=== PATIENT | female | born 2000 | race Caucasian/White ===

== ENCOUNTER 2022-02-04 13:40 | Outpatient (CLI) | payer BC, MEDICAID, SELFPAY ==
[2022-02-04] VITALS (7 sets, daily range): BP systolic 104–116; BP diastolic 56–62; PULSE 62–87; RESP 16; TEMP 36.6; BMI 21.2
[2022-02-04] MEDS: lactated ringers 1,000 ML 999 ML IV (14:32)
[2022-02-04] MEDS: betamethasone susp 6 mg/mL 5 mL 12 MG IM (14:33)
[2022-02-04] MEDS: NIFEdipine 10 mg Capsule 30 MG PO (14:33)
[2022-02-04 15:53] LABS: Amphetamines Screen Urine Negative (Negative); Barbiturates Screen Urine Negative (Negative); Benzodiazepines Screen Urine Negative (Negative); Cocaine Screen Urine Negative (Negative); Opiate Screen Urine Negative (Negative); PCP Screen Urine Negative (Negative); THC Screen Urine Positive (Negative)
[2022-02-04 16:10] LABS: Alcohol Level < 10 mg/dL (0-10)
== END 2022-02-04 16:50 | disposition home or self-care (01) ==
LOC: OPOB 13:41 → OBGYN 14:03
PROVIDERS: Visit Provider Obstetrics & Gynecology
DX: O26.899 Other specified pregnancy related conditions, unspecified trimester (principal); Z3A.00 Weeks of gestation of pregnancy not specified; R10.9 Unspecified abdominal pain
CPT/HCPCS: 36415; 59025; 80306; 80307; 96372; 99211; J0702

== ENCOUNTER → 2022-02-07 14:39 | Outpatient (BNVA) | payer BC, MEDICAID, SELFPAY | PROVIDERS: Visit Provider Obstetrics & Gynecology | DX: Z34.80 Encounter for supervision of other normal pregnancy, unspecified trimester (principal) | CPT/HCPCS: 81000; 87081 ==

== ENCOUNTER → 2022-02-15 08:57 | Outpatient (BNVA) | payer BC, MEDICAID, SELFPAY | PROVIDERS: Visit Provider Obstetrics & Gynecology | DX: Z34.80 Encounter for supervision of other normal pregnancy, unspecified trimester (principal) | CPT/HCPCS: 81000; 87086 ==

== ENCOUNTER 2022-02-22 03:03 | Inpatient (IN) | payer BC, MEDICAID, SELFPAY ==
[2022-02-22] VITALS (144 sets, daily range): BP systolic 91–145; BP diastolic 53–96; PULSE 60–112; RESP 16; TEMP 36.1; O2SAT 90–100; BMI 23.1
[2022-02-22 03:02] LABS: Amphetamines Screen Urine Negative (Negative); Barbiturates Screen Urine Negative (Negative); Benzodiazepines Screen Urine Negative (Negative); Cocaine Screen Urine Negative (Negative); Opiate Screen Urine Negative (Negative); PCP Screen Urine Negative (Negative); THC Screen Urine Positive (Negative)
[2022-02-22] MEDS: lactated ringers 1,000 ML 999 ML IV (03:15)
[2022-02-22] MEDS: fentaNYL 50 mcg/mL INJ 2mL IVP (03:18)
[2022-02-22 03:33] LABS: Basophils # 0.1 10^3/uL (0.0-0.1); Basophils % 0.5 %; Eosinophils # 0.1 10^3/uL (0.0-0.8); Eosinophils % 0.8 %; Hematocrit 28.1 % (37.0-47.0); Hemoglobin 9.9 g/dL (11.5-15.3); Mean Corpuscular HGB Conc 35.2 g/dL (30.0-36.0); Mean Corpuscular Hemoglobin 30.7 pg (28.0-34.0); Mean Corpuscular Volume 87.3 fl (81-99); Mean Platelet Volume 9.9 fL (7.4-10.4); Monocytes # 0.8 10^3/uL (0.2-0.9); Monocytes % 5.5 %; Neutrophils # 8.77 10^3/uL (1.8-7.7); Neutrophils % 63.5 %; Nucleated Red Blood Cells % 0 %; Platelet Count 198 10^3/cmm (130-400); Red Blood Count 3.22 10^6/uL (4.1-5.3); Red Cell Distribution Width 13.5 % (12.1-15.1); White Blood Count 13.8 10^3/uL (4.0-10.0)
[2022-02-22 03:49] LABS: Slide Review Slide Review Perform
--- NOTE | 2022-02-22 04:10 | ANES.PREANE2 ---
Documented by User: Shannan Alejandre CRNA 02/22/22 04:33 Pre-Anesthetic Assessment Height/Weight: Height 1.7 m Weight 67.132 kg Pulse Resp BP Pulse Ox 69 16 121/67 100 02/22/22 04:29 02/22/22 03:18 02/22/22 04:29 02/22/22 04:24 Preop Diagnosis: IUP epidural Familial anesthetic complications: none Was Beta Jayson taken within 24 hours: N/A Was Clonidine taken within 24 hours: N/A Last intake: 44 Social Tobacco (vapes) and No alcohol Exam alert and oriented x 3 Airway Submandibular: within normal limits Cervical ROM: within normal limits Mallampati: Class II Dentition: full History/ROS No significant history except as noted GI Gastroesophageal Reflux Disease Anesthetic Plan ASA status: 2 Anesthesia: Anesthesia Evaluation and Regional (specify below) (epidural) Risk of > 500 ml blood loss (7ml/kg in children): No Medications/Allergies Home Medications Medication Instructions Recorded Confirmed Last Taken Type 1 tab PO DAILY 02/04/22 02/22/22 02/21/22 History acetaminophen 325 mg tablet 325 mg PO QID PRN 02/04/22 02/22/22 Unknown History (Tylenol) metronidazole 500 mg tablet 500 mg PO BID #14 tab 02/17/22 02/22/22 Unknown Rx Allergies Allergy/AdvReac Type Severity Reaction Status Date / Time No Known Allergies Allergy Verified 02/22/22 02:40 Current Medications Generic Name Dose Route Start Last Admin Trade Name Freq PRN Reason Stop Dose Admin Fentanyl 25 - 100 mcg 02/22/22 02:58 02/22/22 03:18 Fentanyl 50 Mcg/Ml Inj 2ml IVP 25 mcg Q1H PRN Administration SEVERE PAIN Lactated Ringer's 1,000 mls @ 999 mls/hr 02/22/22 03:00 02/22/22 03:15 Lactated Ringers IV 999 mls/hr .Q1H1M PRN Administration See label comments PFSH Anesthesia Medical History No pertinent past medical history neghx: htn, dm, thyroid, dvt/pe PCP: none Surgical History History of 2019 History of shoulder surgery 2016 Family History Denies family history of Colon cancer Ovarian cancer Diabetes Heart disease Hypercholesteremia Breast cancer Hypertension Uterine cancer Thyroid disease Stroke Female Reproductive History : 2 Data Anesthesia : 02/22/22 03:09 Short CBC 02/22/22 Range/Units 03:09 WBC 13.8 H (4.0-10.0) 10^3/uL Hgb 9.9 L (11.5-15.3) g/dL Hct 28.1 L (37.0-47.0) % MCV 87.3 (81-99) fl Plt Count 198 (130-400) 10^3/cmm Neut % (Auto) 63.5 % Neut # (Auto) 8.77 H (1.8-7.7) 10^3/uL Cardiac Studies: No Data to Display
[2022-02-22] MEDS: dextrose 5%-lactated ringers 1,000 ML 125 ML IV ×2 (04:16→16:42)
--- NOTE | 2022-02-22 04:30 | P.ANES_ITS ---
Documented by User: Shannan Alejandre CRNA 02/22/22 04:31 Anesthesia Procedures Procedure/Date: 02/22/22 epidural Epidural: Time Out Performed: Yes Consents Signed: Procedure Consent Con sent: from patient, risks and benefits reviewed and patient agrees to proceed Lumbar Level: L3-L4 Epidural position: sitting Epidural procedure: sterile prep of area, 1% lidocaine to numb the area, 18 g needle, negative for paresthesia passed, test dose given, 1.5% xylocaine 1:200k epi, placed PCEA, no systemic response, sterile dressing applied, L.U.D. no apparent complications and 0.2% Ropiavacaine @ mls/hr (13) Additional Comments: MARCELLE at 5, taped at 12 at skin. neg blood return, neg CSF return Documented by User: Rigoberto Davis DO 02/22/22 10:19 Anesthesia Procedures Procedure/Date: 02/22/22
[2022-02-22] MEDS: lactated ringers 1,000 ML 125 ML IV (09:47)
[2022-02-22] MEDS: oxytocin 30 UNIT/500 ML BAG IV (10:14)
[2022-02-22] MEDS: ondansetron 2 mg/ML SDV 2 mL 4 MG IVP (12:02)
--- NOTE | 2022-02-22 12:32 | PC.NURSE ---
This patient stated she was having some lower back pain near her epidural, this nurse stated I could have anesthesia come to the unit to assess her epidural, this patient stated no it was not bothering her that bad.
--- NOTE | 2022-02-22 19:42 | W.PM.OPSUD ---
Surgery/Procedure H&P Update DATE OF PROCEDURE: February 22, 2022 DATE H&P PERFORMED: 02/15/22 H&P UPDATE INFORMATION: I have reviewed H&P completed within last 30 days, I have examined patient prior to procedure and Changes to prior documentation as noted here CHANGES TO PREVIOUS DOCUMENTATION: The patient presented to labor and delivery at 38 weeks, 4 days with spontaneous labor. Cervix was found to be 4/80/-3. She was jean regularly. Overall very reassuring status. PREOP DIAGNOSIS: IUP Related Problem List Diagnoses (1) GBS (group B Streptococcus carrier), +RV culture, currently : (2) History of labor: (3) History of delivery: (4) Normal :
--- NOTE | 2022-02-22 19:44 | P.PCNOB_ITS ---
Delivery Note: Date of delivery: February 22, 2022 Pre-delivery diagnoses: iup@ 38w4d, active labor, previous , GBS positive Post-delivery diagnoses: same- vaginal delivery Procedure: Delivering Physician: Kevin Estimated blood loss (mL): 25 Findings: term female in the REYMUNDO presentation Pre-Delivery Course: The patient was admitted for labor at term. She desired TOLAC. She was given Ampicillin for GBS prophylaxis. She didn't make much change and pitocin was started. Maximum dose was 5 mU. She had SROM and then complete cervical dilation. She began pushing Delivery: The patient had complete cervical dilation and began to push. The head delivered in the REYMUNDO position over an intact perineum under epidural anesthesia. The nose and mouth were bulb suctioned. The shoulders and body delivered atraumatically. The baby was placed onto the mother's abdomen. The cord was clamped and cut. Cord blood was obtained. The placenta delivered spontaneously. It was inspected and found to be intact. Inspection of the perineum revealed a small first-degree vaginal laceration it was repaired with 0 Vicryl in interrupted sutures. Estimated blood loss 25 mL. Apgars on baby were 7 at 1 minute and 9 at 5 minutes. Weight of baby is 7 pounds 1 ounce. Mother and baby were stable post delivery. History History History 2 Term 0 Miscarriages/Ectopic 0 1 Living Children 1 Coding Level of Care Code Acute Underwear Trimmer for Chg Sammi
[2022-02-22] MEDS: ibuprofen 800 mg tablet PO (22:17)
[2022-02-22] MEDS: HYDROcodone-acetaminophen 5-325 mg Tablet PO (22:17)
[2022-02-23 03:59] VITALS: BP 122/81; PULSE 79; TEMP 36.7; O2SAT 96
[2022-02-23] MEDS: HYDROcodone-acetaminophen 5-325 mg Tablet PO (04:08)
--- NOTE | 2022-02-23 07:15 | ANE.PACU2 ---
Inpatient post-anesthesia follow up: Airway intact: Yes Vital signs: Temperature 98.1 F Pulse Rate 79 Respiratory Rate 16 Blood Pressure 122/81 Pulse Oximetry 96 Oxygen Delivery Me thod Room Air Oxygen Flow Rate Fraction of Inspir ed Oxygen Hydration adequate: Yes Nausea and vomiting: No Pain level: 1 Mental status: Baseline
[2022-02-23] MEDS: prenatal vitamin Capsule 1 CAP PO (08:31)
[2022-02-23] MEDS: ibuprofen 800 mg tablet PO ×3 (08:31→21:14)
[2022-02-23] MEDS: docusate sodium 100 mg Capsule PO (08:31)
[2022-02-23 09:02] VITALS: BP 110/72; PULSE 72; RESP 17; TEMP 36.6; O2SAT 98
[2022-02-23 16:32] VITALS: BP 108/67; PULSE 74; RESP 17; TEMP 36.6; O2SAT 100
--- NOTE | 2022-02-23 16:58 | PM.PN ---
Subjective Subjective: The patient has no concerns today Vitals/I&O/Wt Last Vital Signs Temp 97.9 F 02/23/22 16:32 Pulse 74 02/23/22 16:32 Resp 17 02/23/22 16:32 BP 108/67 02/23/22 16:32 Pulse Ox 100 02/23/22 16:32 02/23/22 02/23/22 02/23/22 06:59 14:59 22:59 Output Total 200 / 800 Balance -200 / 400 Weight last 48 hrs Weight 148 lb Physical Exam Const: COMMON NORMALS: no acute distress, average body habitus, patient oriented x3, no limitations, healthy appearing, alert and well nourished GENERAL APPEARANCE: cooperative, comfortable, well kempt and well developed ORIENTATION/CONSCIOUSNESS: Yes awake, Yes oriented to person, Yes oriented to place and Yes oriented to time Resp: COMMON NORMALS: normal respiratory effort EFFORT & INSPECTION: Yes able to speak in complete sentences GI: COMMON NORMALS: Soft to palpation and non-tender PALPATION: Yes Soft to palpation Extremity: COMMON NORMALS: no calf tenderness Neuro: COMMON NORMALS: patient oriented x3 SENSORIUM/ORIENTATION: Yes alert, Yes oriented to person, Yes oriented to place and Yes oriented to time Psych: APPEARANCE: Yes well kempt Urinary Catheter Management: Cunningham Latex: Cath Placed During This Visit: yes, but has since been removed by the nurse Reason for Continuing Indwelling Catheter: Decision to DC Catheter Urinary Catheter Date of Insertion: 02/22/22 Urinary Catheter Time of Insertion: 05:03 Date Urinary Catheter Removed: 02/22/22 Time Urinary Catheter Discontinued: 18:39 Data : 02/22/22 03:09 A&P Assessment and plan (1) Normal : routine care. plan for discharge tomorrow Status: Acute Attestations Medical Necessity Statement*: The patient had a vaginal delivery. She will be here for 2 midnights Coding Level of Care Code Acute Plastic Molder for Lyn Chapa Diagnoses Normal Z34.90
[2022-02-23 19:51] LABS: Hematocrit 25.7 % (37.0-47.0); Mean Corpuscular Hemoglobin 30.9 pg (28.0-34.0); Mean Corpuscular Volume 88.3 fl (81-99); Mean Platelet Volume 9.4 fL (7.4-10.4); Platelet Count 183 10^3/cmm (130-400); Red Blood Count 2.91 10^6/uL (4.1-5.3); Red Cell Distribution Width 13.4 % (12.1-15.1); White Blood Count 11.1 10^3/uL (4.0-10.0)
--- NOTE | 2022-02-23 20:29 | PC.NURSE ---
This nurse on 02/22/2022 titrated the pitocin at 1015 to 1, at 1045 to 2, at 1230 to 3, at 1445 to 4, and at 1515 to 5. This nurse turned the pitocin off at 1754.
[2022-02-23 21:25] VITALS: BP 113/70; PULSE 86; RESP 16; TEMP 36.8; O2SAT 97
[2022-02-24 03:42] VITALS: BP 123/70; PULSE 65; RESP 17; TEMP 36.6; O2SAT 99
[2022-02-24] MEDS: HYDROcodone-acetaminophen 5-325 mg Tablet PO ×3 (06:02→20:52)
[2022-02-24] MEDS: prenatal vitamin Capsule 1 CAP PO (08:32)
[2022-02-24] MEDS: ibuprofen 800 mg tablet PO ×3 (08:32→20:52)
[2022-02-24] MEDS: docusate sodium 100 mg Capsule PO ×2 (08:32→17:01)
[2022-02-24 08:45] VITALS: BP 117/70; PULSE 65; RESP 18; TEMP 36.2
[2022-02-24 09:52] VITALS: BP 116/70; PULSE 63; RESP 20; TEMP 36.7; O2SAT 98
--- NOTE | 2022-02-24 11:46 | P.DS_ITS ---
Discharge Providers Date of Admission: 02/22/22 03:03 Date of Discharge: February 24, 2022 Attending Provider at Admission: James Rodriguez MD Attending Provider at Discharge: James Rodriguez MD Diagnoses at Discharge Discharge Diagnosis (1) Normal : Status: Acute Reason for Visit Reason for Visit: CONTRACTIONS Hospital Course Hospital Course The patient was admitted in active labor. she had spontaneous delivery of a term . she did well and was ready for discharge on day #2 Physical Exam Narrative: No concerns this morning. Const: COMMON NORMALS: no acute distress, average body habitus, patient oriented x3, no limitations, healthy appearing, alert and well nourished GENERAL APPEARANCE: cooperative, comfortable, well kempt and well developed ORIENTATION/CONSCIOUSNESS: Yes awake, Yes oriented to person, Yes oriented to place and Yes oriented to time Resp: COMMON NORMALS: normal respiratory effort EFFORT & INSPECTION: Yes able to speak in complete sentences GI: COMMON NORMALS: Soft to palpation and non-tender PALPATION: Yes Soft to palpation Extremity: COMMON NORMALS: no calf tenderness Neuro: COMMON NORMALS: patient oriented x3 SENSORIUM/ORIENTATION: Yes alert, Yes oriented to person, Yes oriented to place and Yes oriented to time Psych: APPEARANCE: Yes well kempt Urinary Catheter Management: Cunningham Latex: Cath Placed During This Visit: yes, but has since been removed by the nurse Reason for Continuing Indwelling Catheter: Decision to DC Catheter Urinary Catheter Date of Insertion: 02/22/22 Urinary Catheter Time of Insertion: 05:03 Date Urinary Catheter Removed: 02/22/22 Time Urinary Catheter Discontinued: 18:39 Discharge Data Studies Completed and Pending Laboratory Results WBC 11.1 10^3/uL (4.0-10.0) H 02/23/22 19:44 RBC 2.91 10^6/uL (4.1-5.3) L 02/23/22 19:44 Hgb 9.0 g/dL (11.5-15.3) L 02/23/22 19:44 Hct 25.7 % (37.0-47.0) L 02/23/22 19:44 MCV 88.3 fl (81-99) 02/23/22 19:44 MCH 30.9 pg (28.0-34.0) 02/23/22 19:44 MCHC 35.0 g/dL (30.0-36.0) 02/23/22 19:44 RDW 13.4 % (12.1-15.1) 02/23/22 19:44 Plt Count 183 10^3/cmm (130-400) 02/23/22 19:44 MPV 9.4 fL (7.4-10.4) 02/23/22 19:44 Neut % (Auto) 63.5 % 02/22/22 03:09 Lymph % (Auto) 29.0 % 02/22/22 03:09 [place] % (Auto) 5.5 % 02/22/22 03:09 Eos % (Auto) 0.8 % 02/22/22 03:09 Baso % (Auto) 0.5 % 02/22/22 03:09 Neut # (Auto) 8.77 10^3/uL (1.8-7.7) H 02/22/22 03:09 Lymph # (Auto) 4.0 10^3/uL (0.8-4.8) 02/22/22 03:09 [place] # (Auto) 0.8 10^3/uL (0.2-0.9) 02/22/22 03:09 Eos # (Auto) 0.1 10^3/uL (0.0-0.8) 02/22/22 03:09 Baso # (Auto) 0.1 10^3/uL (0.0-0.1) 02/22/22 03:09 Nucleated RBC % (auto) 0 % 02/22/22 03:09 Nucleated RBCs # 0.0 /100WBC 02/22/22 03:09 Urine Opiates Screen Negative ng/mL (Negative) 02/22/22 02:40 Ur Barbiturates Screen Negative ng/mL (Negative) 02/22/22 02:40 Ur Phencyclidine Scrn Negative ng/mL (Negative) 02/22/22 02:40 Ur Amphetamines Screen Negative ng/mL (Negative) 02/22/22 02:40 U Benzodiazepines Scrn Negative ng/mL (Negative) 02/22/22 02:40 Urine Cocaine Screen Negative ng/mL (Negative) 02/22/22 02:40 U Marijuana (THC) Screen Positive ng/mL (Negative) H 02/22/22 02:40 Vitals Last Vital Signs Temp 98.0 F 02/24/22 09:52 Pulse 63 02/24/22 09:52 Resp 20 H 02/24/22 09:52 BP 116/70 02/24/22 09:52 Pulse Ox 98 02/24/22 09:52 Discharge Plan Discharge Patient Disposition: Home Condition: Stable Prescriptions: Continued metronidazole 500 mg tablet 500 mg PO BID Qty: 14 0RF 1 tab PO DAILY 0RF acetaminophen [Tylenol] 325 mg Tablet 325 mg PO QID PRN (Reason: Pain) 0RF Discharge Orders: Discharge Order (Routine); Ordered 02/24/22 Ordered By: Sanna Brown Patient Instructions: Depression (DC), Bleeding (DC), Preeclampsia and Eclampsia After Delivery (GEN), OB Discharge Report, OB Food/Drug Interaction Guide, OB Care at Home, Opioid Safety, OB Home Care, OB Vaginal Deliveries - [facility], Abnormal Bleeding Discharge Attestations Time Spent in Discharge Care*: less than 30 min Quality Metrics Clinical Quality Measures [ No reported AMI, CVA or VTE this stay] Coding Level of Care Code Acute Chg FW DC note Diagnoses Normal Z34.90
[2022-02-24 17:17] VITALS: BP 117/71; PULSE 60; TEMP 37; O2SAT 100
[2022-02-24 21:20] VITALS: BP 116/67; PULSE 81; RESP 16; O2SAT 99
== END 2022-02-24 21:25 | disposition home or self-care (01) | DRG 807 ==
LOC: OPOB 03:04 → OBGYN 03:04
PROVIDERS: Obstetrics & Gynecology; Admitting Provider Obstetrics & Gynecology; Visit Provider Obstetrics & Gynecology
DX: O34.211 Maternal care for low transverse scar from previous cesarean delivery (principal); Z37.0 Single live birth; N85.8 Other specified noninflammatory disorders of uterus; Z3A.38 38 weeks gestation of pregnancy; O99.824 Streptococcus B carrier state complicating childbirth; O70.0 First degree perineal laceration during delivery; O99.334 Smoking (tobacco) complicating childbirth; F17.290 Nicotine dependence, other tobacco product, uncomplicated; Z87.51 Personal history of pre-term labor
CPT/HCPCS: 36415; 51702; 59025; 59409; 80306; 85025; 85027; 99211; J2405; J2795; J3010

== ENCOUNTER → 2022-08-13 14:04 | Outpatient (BNVA) | payer BC, MEDICAID, SELFPAY | PROVIDERS: Visit Provider Registered Nurse Neonatal Intensive Care | DX: R50.9 Fever, unspecified (principal); H66.001 Acute suppurative otitis media without spontaneous rupture of ear drum, right ear | CPT/HCPCS: 87071; 87880 ==